=== PATIENT | female | born 1950 | race Caucasian/White ===

== ENCOUNTER 2021-04-19 06:12 | Day surgery (SDC) | payer MEDICARE, OTHER ==
[~2021-04-19] VITALS: Ht 167.6 cm; Wt 83.9 kg
[~2021-04-19 06:12] MED LIST: ACETAMINOPHEN325 MG PO; ESTRACE1 MG PO; FLUTICASONE PRO16 GM NASAL; HYDROXYCHLOROQ200 MG PO; MOBIC7.5 MG PO; NAPROXEN375 M1 PO; PEPCID AC20 MG PO; SYNTHROID112 MCG PO; VIBRAMYCIN50 MG PO; VITAMIN D 22000 UNIT PO; ZYRTEC10 MG PO
[2021-04-19 06:30] LABS: HEMATOCRIT 42.3 % (36.0-48.0); HEMOGLOBIN 14.1 g/dL (12-16); MCH 31.7 pg (26.0-34.0); MCHC 33.4 g/dL (31.0-37.0); MEAN PLATELET VOLUME 8.4 fL (7.4-10.4); RBC 4.45 10x6/uL (4.00-5.40); RDW 13.6 % (11.5-14.5); WBC 4.4 10x3/uL (4.8-10.8)
[2021-04-19 07:23] VITALS: BP 126/67; Ht 167.6 cm; Wt 83.9 kg
--- NOTE | 2021-04-19 12:13 | NUR ---
1205 ICE CAPS X2, ONE UNDER FOOT/LOWER LEG, ANOTHER TOP OF FOOT. BED ADJUSTED FOR COMFORT. FRIEND AT SIDE, TIME FRAME FOR TODAYS STAY GIVEN, STATES THROAT IS RAW FEELING, EXPLAINED ENTUBATION AND TO DRINK EXTRA/PLENTY OF LIQUIDS.
--- NOTE | 2021-04-19 13:11 | OP ---
PATIENT NAME: IRON POOLE MEDICAL RECORD: [id number] :48 LOCATION:D.OPS ADMISSION DATE: SURGEON: BETITO WILLAMS DPM DATE OF OPERATION: 04/19/2021 PREOPERATIVE DIAGNOSES: 1. Hallux abductovalgus, left foot. 2. Instability first met cuneiform joint, left foot. 3. Plantar plate rupture, left foot, second metatarsophalangeal joint. POSTOPERATIVE DIAGNOSES: 1. Hallux abductovalgus, left foot. 2. Instability first met cuneiform joint, left foot. 3. Plantar plate rupture, left foot, second metatarsophalangeal joint. PROCEDURES: 1. Monroy bunionectomy. 2. First met cuneiform joint fusion. 3. Bill osteotomy, left second metatarsal. 4. Plantar plate repair, left second MPJ. ANESTHESIA: General anesthesia with local infiltrate utilizing 20 mL of 1:1 mix of lidocaine and Marcaine plain around the left forefoot as well as the tibial nerve. HEMOSTASIS: Left thigh tourniquet at 320 mmHg. PREOPERATIVE DETAILS: The patient was taken to the OR and placed on the operating table in a supine position. This was followed by induction of general anesthesia and infiltration of local anesthetic. The left extremity was then prepped and draped in the usual aseptic technique followed by exsanguination and inflation of tourniquet. PROCEDURE #1: Monroy bunionectomy, left foot. A #15 blade was used to create an incision from the dorsal aspect of the medial cuneiform distally to the base of the proximal phalanx of the hallux. The incision was deepened down through subcutaneous tissue. The first MPJ was delivered and an inverted L capsulotomy was performed and a medial capsular flap was reflected. The head of the first metatarsal was delivered. A sagittal saw was used to resect the medial eminence. Attention was then directed to the first interspace where a lateral release was performed. Good clinical reduction of the lateral contracture was verified. PROCEDURE #2: First metatarsal cuneiform joint fusion. The incision described #1 was dissected down to the periosteum. The first metatarsal cuneiform joint was exposed. A sagittal saw was used to resect the joint. A 5-hole plate with one screw crossing through the plate across the fusion site was placed under excellent rigid internal fixation. C-arm was used to verify good alignment of the first ray as well as placement of the hardware. The wound was flushed. The joint capsule was repaired with 2-0 Vicryl, the deep periosteum was also closed using 2-0 Vicryl. The subcutaneous tissue was closed with 4-0 Rapide followed by closure of the skin with 4-0 Rapide in a subcuticular technique followed by Dermabond. PROCEDURE #3: Bill osteotomy, left second metatarsal. A 15 blade was used to OPERATIVE REPORT [id number] IRON POOLE create incision approximately 3 to 4 cm on the dorsal aspect of the second metatarsal distally to just proximal to the PIPJ of the second digit. The incision was deepened down through subcutaneous tissue. The extensor longus tendon was visualized. The extensor brevis and longus were split giving access to the second metatarsal as well as the second MPJ. At this time, a McGlamry scoop elevator was used to free the plantar structures under the second MPJ. A Bill osteotomy was then performed from dorsal distal to plantar proximal. The head was translocated proximally and a temporary K-wire was used to hold the metatarsal head. PROCEDURE #4: Plantar plate repair, left second MPJ. At this time, visualization was achieved using wire retractors over a wire that was drilled in the second metatarsal as well as one that was drilled in the proximal phalanx of the second digit. Upon distraction of the joint, there was noted to be a complete tear of the lateral aspect of the plantar plate. At this time, the tear was completed with a #15 blade, medial and laterally, being sure to preserve the flexor tendon. At this time, a scorpion passer was used to pass FiberWire up through the plantar plate with 2 passes lateral and 1 pass medial. Two drill holes were made in the base of the proximal phalanx of the second digit. The FiberWires were passed up through the drill holes. At this time, the wire retractors were removed. The Bill osteotomy was fixated with 2 pop-off screws and with the second digit held in plantar flexion and abduction the surgeon's knots were used to fashion the FiberWire securing the plantar plate in a repaired position. Following the repair, the digit was sitting in a much better position. The wound was flushed. The capsule was repaired with 2-0 Vicryl as well as reapproximation of the extensor longus tendons. The subcutaneous tissue was reapproximated with 4-0 Rapide and the skin was closed with 4-0 Rapide in a subcuticular technique followed by Dermabond, Adaptic, 4 x 4 and conform were used to dress all wounds followed by application of modified Moore compression dressing. Tourniquet was deflated. POSTOPERATIVE DETAILS: The patient tolerated the procedure well and left the OR with vital signs stable and vascular status at preoperative levels. The patient was transferred to recovery per anesthesia in stable condition. TRANSINT:[id number] Voice Confirmation ID: [id number] DOCUMENT ID: [id number] BETITO WILLAMS DPM at 1311 CC: [id number] DICTATION DATE: 04/19/21 1131 EXTENSION SUPERVISOR: 04/19/21 1232 [facility] [address] [place] [address]
== END 2021-04-19 13:25 | disposition home or self-care (01) ==
LOC: D.OPS 06:12 → EDBD 08:00 → D.OPS 08:30
PROVIDERS: Anesthesiology; ATTEND Podiatrist
DX: M20.12 Hallux valgus (acquired), left foot (principal); M25.375 Other instability, left foot